=== PATIENT | female | born 1970 | race Hispanic/Latino ===

== ENCOUNTER 2016-04-11 02:22 | Inpatient (IN) ==
[2016-04-05 16:38] LABS: MANUAL DIFF NEEDED? NO; URINE MICRO REVIEW NEEDED? NO; URINE SOURCE CLEAN CATCH
[2016-04-05 16:42] LABS: BASO% 0.1 % (0.0-0.8); EOS# 0.06 X1000 (0.0-0.7); EOS% 0.8 % (0.0-10.0); HEMATOCRIT 41.3 % (37.0-47.0); HEMOGLOBIN 14.4 g/dL (12.0-16.0); IMM GRAN# 0.02 X1000 (0.0-0.04); IMM GRAN% 0.3 % (0.0-0.5); LYMPH# 1.59 X1000 (1.2-3.4); LYMPH% 21.7 % (20.5-51.1); MCH 31.6 PG (27-31); MCHC 34.9 g/dL (33-37); MCV 90.8 FL (81-99); MONO# 0.57 X1000 (0.11-0.59); MONO% 7.8 % (1.7-9.3); MPV 10.3 FL (7.4-10.4); NEUT% 69.3 % (42.2-75.2); PLT 265 X1000 (130-400); RBC 4.55 XMIL (4.2-5.4)
[2016-04-05 16:44] LABS: BILIRUBIN URINE NEGATIVE (NEGATIVE); BLOOD URINE TRACE (NEGATIVE); COLOR YELLOW; GLUCOSE URINE NEGATIVE (NEGATIVE); LEUKOCYTES URINE NEGATIVE (NEGATIVE); NITRITE URINE NEGATIVE (NEGATIVE); PROTEIN URINE NEGATIVE (NEGATIVE); SP GRAVITY URINE 1.016; TURBIDITY URINE HAZY (CLEAR); UR EPITHELIAL CELLS <10 /HPF (<10); URINE BACTERIA 1+ /HPF; URINE RBC <10 /HPF (<10); URINE WBC <10 /HPF (<10); UROBILINOGEN URINE NORMAL (NORMAL)
[2016-04-05 16:49] LABS: INR 0.97; PROTIME 10.3 Seconds (9.2-11.7); PTT 28.9 Seconds (22.0-36.0)
[2016-04-05 16:57] LABS: AGAP 13; ALBUMIN 4.1 g/dL (3.5-5.0); ALKALINE PHOSPHATASE 102 U/L (32-104); BUN 13 mg/dL (8-22); CALCIUM 8.5 mg/dL (8.8-10.2); CHLORIDE 102 mmol/L (98-107); COSMO 274; GOT 18 U/L (10-30); GPT 25 U/L (10-36); POTASSIUM 3.7 mmol/L (3.5-5.1); SODIUM 137 mmol/L (136-145); TCO2 22 mmol/L (25-35); TOTAL BILIRUBIN 0.49 mg/dL (0.20-1.00); TOTAL PROTEIN 7.4 g/dL (6.3-8.3)
[2016-04-11] MEDS ORDERED: KEFZOL 1 GM/D5W 50 ML ONE (10:54)
[2016-04-11] MEDS ORDERED: REGLAN ONE (10:54)
[2016-04-11] MEDS ORDERED: LR 1,000 ML ONE (10:54)
[2016-04-11] MEDS ORDERED: PEPCID ONE (10:54)
[2016-04-11] MEDS ORDERED: NS 1,000 ML ONE (15:48)
[2016-04-11 15:51] LABS: URINE MICRO REVIEW NEEDED? NO; URINE SOURCE CATH
[2016-04-11] MEDS ORDERED: FENTANYL ONE (15:51)
[2016-04-11] MEDS ORDERED: DIPRIVAN 1% ONE (15:52)
[2016-04-11] MEDS ORDERED: NORCURON ONE (15:54)
[2016-04-11] MEDS ORDERED: ZOFRAN ONE (15:54)
[2016-04-11] MEDS ORDERED: NEOSTIGMINE ONE (15:54)
[2016-04-11] MEDS ORDERED: ROBINUL ONE (15:55)
[2016-04-11] MEDS ORDERED: QUELICIN (DOSE) ONE (15:55)
[2016-04-11] MEDS ORDERED: DECADRON ONE (15:55)
[2016-04-11] MEDS ORDERED: XYLOCAINE-MPF 2% ONE (15:55)
[2016-04-11 15:59] LABS: BILIRUBIN URINE NEGATIVE (NEGATIVE); BLOOD URINE NEGATIVE (NEGATIVE); COLOR YELLOW; GLUCOSE URINE NEGATIVE (NEGATIVE); LEUKOCYTES URINE NEGATIVE (NEGATIVE); NITRITE URINE NEGATIVE (NEGATIVE); PROTEIN URINE NEGATIVE (NEGATIVE); TURBIDITY URINE CLEAR (CLEAR); UROBILINOGEN URINE NORMAL (NORMAL)
[2016-04-11 16:00] LABS: UR EPITHELIAL CELLS <10 /HPF (<10); URINE BACTERIA NEGATIVE /HPF; URINE RBC <10 /HPF (<10); URINE WBC <10 /HPF (<10)
[2016-04-11] MEDS ORDERED: LASIX ONE (16:02)
[2016-04-11] MEDS ORDERED: DEMEROL ONE (16:04)
[2016-04-11] MEDS ORDERED: PHENERGAN ONE (16:49)
[2016-04-11] MEDS ORDERED: SODIUM CHLORIDE 0.9% INJ PRN (17:26)
[2016-04-11] MEDS: NS 1,000 ML IV SCH (18:39)
[2016-04-11] MEDS: PERCOCET-5 PO PRN (18:42)
[2016-04-11 21:06] LABS: BASO% 0.1 % (0.0-0.8); HEMATOCRIT 38.9 % (37.0-47.0); HEMOGLOBIN 13.7 g/dL (12.0-16.0); IMM GRAN# 0.02 X1000 (0.0-0.04); IMM GRAN% 0.1 % (0.0-0.5); LYMPH# 0.29 X1000 (1.2-3.4); LYMPH% 1.9 % (20.5-51.1); MANUAL DIFF NEEDED? YES; MCH 31.6 PG (27-31); MCHC 35.2 g/dL (33-37); MCV 89.6 FL (81-99); MONO# 0.29 X1000 (0.11-0.59); MONO% 1.9 % (1.7-9.3); MPV 10.2 FL (7.4-10.4); PLT 254 X1000 (130-400); RBC 4.34 XMIL (4.2-5.4)
[2016-04-11 21:21] LABS: BANDS 8 % (0-1); LYMPHS 1 % (21-51)
[2016-04-11 21:27] LABS: AGAP 16; BUN 9 mg/dL (8-22); CHLORIDE 100 mmol/L (98-107); COSMO 278; POTASSIUM 3.7 mmol/L (3.5-5.1); SODIUM 138 mmol/L (136-145); TCO2 22 mmol/L (25-35)
[2016-04-11] MEDS: PERIDEX MT SCH (22:00)
[2016-04-12] MEDS: PERCOCET-5 PO PRN ×4 (00:55→20:34)
[2016-04-12] MEDS: NS 1,000 ML IV SCH ×4 (00:55→20:33)
[2016-04-12 05:35] LABS: MANUAL DIFF NEEDED? NO
[2016-04-12 05:53] LABS: HEMATOCRIT 32.6 % (37.0-47.0); HEMOGLOBIN 11.1 g/dL (12.0-16.0); IMM GRAN# 0.02 X1000 (0.0-0.04); IMM GRAN% 0.2 % (0.0-0.5); LYMPH# 0.74 X1000 (1.2-3.4); LYMPH% 7.8 % (20.5-51.1); MCH 30.9 PG (27-31); MCV 90.8 FL (81-99); MONO# 0.69 X1000 (0.11-0.59); MONO% 7.3 % (1.7-9.3); MPV 10.4 FL (7.4-10.4); NEUT% 84.7 % (42.2-75.2); PLT 259 X1000 (130-400); RBC 3.59 XMIL (4.2-5.4)
[2016-04-12 05:56] LABS: AGAP 13; BUN 10 mg/dL (8-22); CALCIUM 7.5 mg/dL (8.8-10.2); CHLORIDE 102 mmol/L (98-107); COSMO 274; POTASSIUM 3.7 mmol/L (3.5-5.1); SODIUM 137 mmol/L (136-145); TCO2 22 mmol/L (25-35)
[2016-04-12] MEDS: PERIDEX MT SCH ×2 (09:00→20:34)
[2016-04-12] MEDS: DEMEROL IV PRN ×3 (10:10→18:44)
[2016-04-12] MEDS: PHENERGAN IV PRN ×3 (10:20→18:44)
--- NOTE | 2016-04-12 11:43 | OPERATIVE NOTE ---
PROCEDURE DATE: 04/11/2016 PREOPERATIVE DIAGNOSIS: Complex cystic and vascular left renal mass, mid pole kidney. POSTOPERATIVE DIAGNOSIS: Complex cystic and vascular left renal mass, mid pole kidney. PROCEDURE PERFORMED: Left partial nephrectomy. SURGEON: Cornelio Self DO ASSISTANTS: Roseann Burnett Karen, and the OR staff. ANESTHESIA: General intubation. CLAMP TIME: 17 minutes. COMPLICATIONS: None. BLOOD LOSS: Approximately 500 mL. SPECIMEN REMOVED: Left renal mass, approximately 1 inch in total dimension. DRAINS: A #19 Jefry and a Macario catheter. FINDINGS: As per the dictation. COURSE OF PROCEDURE: The patient was placed in the flank position with the left flank up, having agreed upon the surgical site and the kidney to be operated. A time-out procedure was performed. The patient received periprocedural antibiotics. Hash angulo were placed on the skin of the flank over the 12th rib. An incision, as preplanned, was placed over the top of this 12th rib and we went transcostal into the retroperitoneum with electrocautery and with a knife. A long incision was made, avoiding the nerves of the 12th and 11th ribs, and this incision was carried on with electrocautery through all layers to the dorsum or the superficial surface of the rib, which was entered bluntly and sharply and the retrocostal region pushed away from the rib and we entered in the rib bed. That dissection carried down to the costal ligament dorsally so that could to be transected and the rib deflected caudal. That would allow us to better open the incision for the intended procedure. In this fashion, all layers were entered and the peritoneum was swept away to the anterior and the retroperitoneal space entered by way of entering Gerota fascia. The kidney could be palpated once we were inside the left flank and dissection transpired in such a way that the mid kidney could be identified with gentle removal of the associated Gerota fascia and fat. The renal mass, as operated, could be identified clearly and, once free from obstruction of work and vision, cautery was performed around the base of the mass. The decision would be to try to make this without crossclamping at all as it was a small lesion, the only issue being that it was mid pole and a little bit hard to grasp and stop bleeding. The capsule the kidney was entered about 0.5 to 1 cm from the mass and dissection transpired through the renal pyramids and tissues to its attachment centrally. These were transected and the bleeding which was noted occurred pretty much at this time. This mass medially was about a centimeter from the renal vasculature and renal pelvis. To that end, it being a little difficult to grab the vascular structures for hemostasis and repair, the decision was made to crossclamped, so the region of the transected renal mass had pressure applied and, the artery and vein as prior identified, was crossclamped. The ureter was prior identified and was from the retroperitoneal fat with a vessel loop and hemostat so, once crossclamping occurred, the bed of the renal mass, as removed, was oversewed with a running 3-0 Vicryl and excellent hemostasis at this point was noted. The mass was passed off the table and sent for pathologic examination and permanent section, so pretty reasonable hemostasis was noted at this point, oversewing the bed of the mass, calyces, and any vasculature there which had been bleeding. The wound was packed with a cloth anticoagulant which was rolled into a tube and sutured together that would be pressed into the opening and a liquid version of Floseal was inserted into the wound to help with hemostasis on placement of this hemostatic cloth pad. The margins of the resected site were oversewn with half dozen or so 3-0 Vicryl simple sutures and the patient was unclamped. Clamp time was about 17 minutes, which is thought to be excellent. No additional bleeding was noted. The decision was made to make an additional medial suture where the fossa of the removed mass was close to the renal vasculature and so the last and final stitch was placed there with 2-0 chromic. Gerota fat was reapproximated around this area for both hemostasis and healing and returned to its normal position. A stab wound was made just below and medial on the incision to avoid the peritoneum and, with a fascial layers aligned with Javier clamps, a tiny stab wound was made and a hemostat was passed through and a #19 Jefry drain was pulled through and shortened so that it would lie nicely behind the kidney. It was sutured in place with two 2-0 silk sutures attached to a grenade drain. The decision was made not to irrigate at this point. No active bleeding could be identified. A drain was placed behind the kidney, posterior thereto on the iliopsoas muscles. The wound was closed in layers with 0 Vicryl starting at the rib tip and suturing towards the patient's back. The area of the rib bed was closed. The nerves were identified and judiciously avoided. Next, the transversus abdominis and its fascia was closed from the rib tip to the anterior midline. The internal oblique musculature was then closed in a running, continuous fashion, and the external oblique was then closed with its fashion in running continuous fashion, accomplishing approximation of the flank incision. The deep dermal tissue and subcutaneous fat was approximated based on hash angulo put in place preoperatively. The break in the table was let down during this process so the tissues would reapproximate and we would avoid tearing musculature. Once the skin was approximated, about every 1 to 1.5 cm along its length, osvaldo were applied to the skin. The skin was closed. The Jefry drain, again, was placed to grenade suction and a dressing was applied. The Macario placed preoperatively was secured to an adhesive-type anchoring device on the left right thigh and to urometer drainage. The patient tolerated the procedure well. The beanbag was deflated and she was allowed to drift back onto the stretcher and was sent to recovery in stable condition. The family was advised of the favorable outcome.
[2016-04-13] MEDS: NS 1,000 ML IV SCH ×4 (01:57→15:39)
[2016-04-13] MEDS: PERCOCET-5 PO PRN ×4 (02:01→18:46)
[2016-04-13 06:00] LABS: CREATININE BODY FLUID 0.7 mg/dL
[2016-04-13 06:42] LABS: AGAP 10; BUN 9 mg/dL (8-22); CALCIUM 7.5 mg/dL (8.8-10.2); CHLORIDE 108 mmol/L (98-107); COSMO 280; POTASSIUM 3.9 mmol/L (3.5-5.1); SODIUM 141 mmol/L (136-145); TCO2 23 mmol/L (25-35)
[2016-04-13] MEDS: DEMEROL IV PRN ×3 (08:43→20:10)
[2016-04-13] MEDS: PHENERGAN IV PRN ×3 (08:44→20:12)
[2016-04-13] MEDS: PERIDEX MT SCH (10:09)
[2016-04-13 11:06] LABS: AGAP 9; BUN 8 mg/dL (8-22); CALCIUM 7.6 mg/dL (8.8-10.2); CHLORIDE 108 mmol/L (98-107); COSMO 284; POTASSIUM 3.4 mmol/L (3.5-5.1); SODIUM 143 mmol/L (136-145); TCO2 26 mmol/L (25-35)
[2016-04-13 20:48] VITALS: BP 135/89
--- NOTE | 2016-04-14 15:58 | DISCHARGE SUMMARY ---
ADMISSION DATE: 04/12/2016 DISCHARGE DATE: 04/13/2016 HOSPITAL COURSE: On the day of admission she received a left partial nephrectomy which went fairly uneventful. Nominal postoperative anemia with multivitamin with iron recommended. She did very well. Creatinine came back normal. Creatinine on drainage on the day of discharge was normal so the drain was discontinued. The Macario was discontinued on the first postoperative day. She did really well with proper instructions and is discharged home to follow up in 10 days to 2 weeks to discuss the pathology report of the partial nephrectomy. The remainder and balance of this admission is in the electronic chart for your review. IMPRESSION: Left complex renal mass cystic and solid in the mid kidney. PLAN: Follow up in the office to review the pathology report. The patient did well.
--- NOTE | 2016-05-03 02:52 | DISCHARGE SUMMARY ---
ADMISSION DATE: 04/11/2016 DISCHARGE DATE: 04/13/2016 ADDENDUM Please note at the request of medical records, this addendum is offered up as the patient had a partial nephrectomy for a complex left renal mass, and the outcome of that operation and the path report thereof provided us with a diagnosis of renal cell carcinoma. Please reference the path report for the details.
== END 2016-04-13 21:45 | disposition home or self-care (01) | DRG 658 ==
LOC: SURHOLD 02:22 → 4N 17:04
PROVIDERS: ADMIT Urology; ATTEND Urology
PROC: 0TB10ZZ Excision of Left Kidney, Open Approach (ICD-10-PCS; principal; 2016-04-11 12:30)
DX: C64.2 Malignant neoplasm of left kidney, except renal pelvis (principal); D64.9 Anemia, unspecified; Z87.442 Personal history of urinary calculi
CPT/HCPCS: 80048; 80053; 81001; 82570; 85025; 85610; 85730; 86850; 86900; 86901; 87088; 88307; 88313; 94761; 94799; J0330; J0690; J1100; J1940; J2175; J2405; J2550; J3010; J7030; J7120; J2710